=== PATIENT | female | born 1990 | race Caucasian/White ===

== ENCOUNTER 2016-07-12 21:11 | Emergency (ER) | payer BC, OTHER ==
[~2016-07-12] VITALS: Ht 160 cm; Wt 86.2 kg
[~2016-07-12 21:11] MED LIST: KRV28 PO; TOPI100T34 PO
[2016-07-12 21:20] VITALS: TEMP 36.5; Ht 160 cm; Wt 86.2 kg
[2016-07-12] MEDS ORDERED: IBUPROFEN 600 MG TAB PO STA (21:31)
--- NOTE | 2016-07-12 21:39 | EMERGENCY ROOM VISIT NOTE ---
History Report prepared by Soumya: Demario Ramirez Under the Supervision of: Dr. Ellis Arenas M.D. First contact with patient: 21:25 Chief Complaint: URINARY SYMPTOMS Stated Complaint: KIDNEY PAIN History of Present Illness The patient is a 26 year old female who presents to the Emergency Room with complaints of constant pain in her flanks bilaterally, which began 7 days prior to arrival. The patient is also experiencing increased frequency of urination, and sometimes feels the need to go without being able to void. She has a history of kidney infection, but has never had a stone. She denies any fever or chills, and has no abdominal pain. Source of History: patient Onset: 7 days [place] Position: back (Bilateral flanks) Timing: constant Associated Symptoms: + urinary symptoms, No abdominal pain, No chills, No fevers Review of Systems All systems have been listed, reviewed, and are negative other than those previously mentioned. Please see Additional Medical History Sheet. Past Medical & Surgical Medical Problems: (1) Pyelonephritis Nos Family History Cancer Gallbladder disease Heart disease Hypertension Kidney disease Kidney stones Social History Smoking Status: Never Smoker Alcohol Use: occasionally Housing Status: lives with family Occupation Status: employed Current/Historical Medications Scheduled Nitrofurantoin Monohyd Macro (Macrobid), 100 MG PO BID Topiramate (Topamax), 200 MG PO BID Verapamil HCl (Verapamil HCl ER), 120 MG PO BID Miscellaneous Medications Medroxyprogesterone Acetate (C (Medroxyprogesterone Aceta), 150 MG IM Allergies Coded Allergies: Aspirin (Verified Allergy, Mild, GI SYMPTOMS, 08/14/15) Oxycodone (Verified Allergy, Mild, GI SYMPTOMS, 08/14/15) pt reports nausea with use of oxycodone and doesnt want to ever take it again Physical Exam Vital Signs Date Time Temp Pulse Resp B/P Pulse Ox O2 Delivery O2 Flow Rate FiO2 07/12/16 21:20 36.5 133 16 134/70 100 Room Air Physical Exam GENERAL: Patient awake, alert, oriented x 3. Patient follows commands. Patient does not appear toxic. Patient is adequately hydrated and well- nourished. SKIN: No erythema, pallor, cyanosis or rash HEENT: Normal head, pupils equal, reactive to light and accommodation. Ears normal. LUNGS: Clear to auscultation. No wheezes, no rales, no rhonchi. HEART: No murmurs. No gallops. No rubs BACK: Vague bilateral CVA tenderness. ABDOMEN: Obese, nontender abdomen. No masses, no rebound, no hepatomegaly or splenomegaly. EXTREMITIES: No signs of trauma or infection. NEUROLOGIC: Cranial nerves II-XII within normal limits. No gross motor sensory function deficits. Medical Decision & Procedures Laboratory Results 07/12/16 21:40 07/12/16 21:40 Test 07/12/16 21:40 Red Blood Count 5.05 M/uL (4.2-5.4) Mean Corpuscular Volume 85.7 fL (80-100) Mean Corpuscular Hemoglobin 30.5 pg (25-34) Mean Corpuscular Hemoglobin Concent 35.6 g/dl (32-36) RDW Standard Deviation 39.5 fL (36.4-46.3) RDW Coefficient of Variation 12.6 % (11.5-14.5) Mean Platelet Volume 9.2 fL (7.4-10.4) Urine Color YELLOW Urine Appearance CLEAR (CLEAR) Urine pH 5.0 (4.5-7.5) Urine Specific Donora 1.023 (1.000-1.030) Urine Protein NEG (NEG) Urine Glucose (UA) NEG (NEG) Urine Ketones NEG (NEG) Urine Occult Blood 3+ (NEG) Urine Nitrite NEG (NEG) Urine Bilirubin NEG (NEG) Urine Urobilinogen NEG (NEG) Urine Leukocyte Esterase TRACE (NEG) Urine WBC (Auto) 10-30 /hpf (0-5) Urine RBC (Auto) 10-30 /hpf (0-4) Urine Hyaline Casts (Auto) 0 /lpf (0-5) Urine Epithelial Cells (Auto) >30 /lpf (0-5) Urine Bacteria (Auto) 3+ (NEG) Urine Pathogenic Casts /lpf (0) Urine Test NEG (NEG) Anion Gap 12.0 mmol/L (3-11) Est Creatinine Clear Calc Drug Dose 102.0 ml/min Estimated GFR () 106.6 Estimated GFR (Non- 91.9 BUN/Creatinine Ratio 16.6 (10-20) Calcium Level 8.8 mg/dl (8.5-10.1) Laboratory results as stated above per my review. Medications Administered Medications (Trade) Dose Ordered Sig/Liza Route Start Time Stop Time Status Last Admin Dose Admin Ibuprofen (Motrin Tab) 600 mg NOW STAT PO 07/12/16 21:31 07/12/16 21:32 DC 07/12/16 21:49 600 MG ED Course 2125: Past medical records reviewed. The patient was evaluated in room C10. A complete history and physical examination was performed. 2131: Ordered Ibuprofen 600 mg PO. 2229: Ordered Nitrofurantoin 100 mg PO. 2234: Upon reevaluation, the patient appeared to have improvement of her symptoms. I discussed today's findings with her. She verbalized agreement of the treatment plan. The patient was discharged home. Medical Decision Differential Diagnosis include: Urinary tract infection, pyelonephritis, kidney stone, musculoskeletal pain. Multiple labs and urinalysis were obtained. Please see above. The patient has a urinary tract infection. She will be started on Macrobid. She is to have her urinalysis repeated in 10-14 days to make sure that the infection has completely resolved. Impression Primary Impression: Urinary tract infection Scribe Attestation The scribe's documentation has been prepared under my direction and personally reviewed by me in its entirety. I confirm that the note above accurately reflects all work, treatment, procedures, and medical decision making performed by me. Departure Information Dispostion Home / Self-Care Prescriptions Nitrofurantoin Monohyd Macro (MACROBID) 100 Mg Cap 100 MG PO BID, #19 CAP Prov: Ellis Arenas M.D. 07/12/16 Referrals Reta Baron D.O. (PCP) Patient Instructions ED UTI Cystitis Female, My [facility] Additional Instructions Take 1 Macrobid twice a day for 10 days. Drink extra fluids. Take 2-3 Advil every 6 hours as needed for pain. Follow-up with your family physician within the next 2 weeks.
[2016-07-12 21:48] LABS: HEMATOCRIT 43.3 % (37-47); MEAN CELL VOLUME 85.7 fL (80-100); MEAN CORPUSCULAR HEMOGLOBIN 30.5 pg (25-34); MEAN CORPUSCULAR HGB CONC 35.6 g/dl (32-36); MEAN PLATELET VOLUME 9.2 fL (7.4-10.4); PLATELET COUNT 295 K/uL (130-400); RED BLOOD COUNT 5.05 M/uL (4.2-5.4); WHITE BLOOD COUNT 8.43 K/uL (4.8-10.8)
[2016-07-12] MEDS ORDERED: MEDR1INJ5 IM (21:50)
[2016-07-12] MEDS ORDERED: VERA120T65 PO (21:50)
[2016-07-12] MEDS ORDERED: TOPI200T20 PO (21:50)
[2016-07-12 22:03] LABS: URINE APPEARANCE CLEAR (CLEAR); URINE BILIRUBIN NEG (NEG); URINE COLOR YELLOW; URINE EPITHELIAL CELL AUTO >30 /lpf (0-5); URINE NITRITE NEG (NEG); URINE SPECIFIC GRAVITY 1.023 (1.000-1.030); UROBILINOGEN NEG (NEG); ZZUR CULT IF INDIC CLEAN CATCH YES
[2016-07-12 22:05] LABS: BUN/CREATININE RATIO 16.6 (10-20); CALCIUM 8.8 mg/dl (8.5-10.1); CREATININE 0.87 mg/dl (0.60-1.20); POTASSIUM 3.5 mmol/L (3.5-5.1)
[2016-07-12 22:09] LABS: MANUAL MICROSCOPIC REQUIRED? NO; REVIEW REQ? YES
[2016-07-12] MEDS ORDERED: NITROFURANTOIN MONOHYDRATE 100 MG CAP PO ONE (22:30)
[2016-07-12] MEDS ORDERED: NITR1CAP16 PO (22:30)
[2016-07-12 22:39] VITALS: BP 128/84; PULSE 98; O2SAT 100
[2016-08-24] MEDS ORDERED: DPPRI400 IM (08:42)
[2016-09-12] MEDS ORDERED: DOXE10CA PO (10:00)
[2016-10-13] MEDS ORDERED: NALT1TAB14 (13:07)
== END 2016-07-12 22:59 | disposition home or self-care (01) ==
LOC: C.EDB 21:12 → C.EDC 22:59
DX: N39.0 Urinary tract infection, site not specified (principal)

== ENCOUNTER → 2017-06-19 | Outpatient (CLI) | payer OTHER ==
[~2017-06-19] MED LIST changes: +DOXE10CA PO; +DPPRI400 IM; -KRV28 PO; +NALT1TAB14; -TOPI100T34 PO; +TOPI200T20 PO; +VERA120T65 PO
== END | disposition home or self-care (01) ==
LOC: C.PAPS 09:10
PROVIDERS: ATTEND Physician Assistant
DX: Z12.4 Encounter for screening for malignant neoplasm of cervix (principal)

== ENCOUNTER → 2017-07-19 | Outpatient (CLI) | payer OTHER | END | disposition home or self-care (01) | LOC: C.LABSPEC 17:35 | PROVIDERS: ATTEND Physician Assistant | DX: Z30.430 Encounter for insertion of intrauterine contraceptive device (principal) ==

== ENCOUNTER 2022-01-27 08:21 | Inpatient (IN) ==
[2022-01-27] MEDS ORDERED: OXYTOCIN 30 UNITS/500 ML BAG IV PRN ×2 (11:27)
[2022-01-27] MEDS ORDERED: LIDOCAINE 1% LOCAL 20 ML VIAL INFIL PRN (11:27)
[2022-01-27] MEDS: LACTATED RINGER'S 1,000 ML IV PRN ×4 (11:30→22:30)
--- NOTE | 2022-01-27 11:43 | Labor Progress Brief Note ---
Date of Service January 27, 2022 Subjective Patient presented to L&D for contractions every 8 minutes, as a rule-out labor. Exam x2 by nursing while I was operating downstairs in the Main OR demonstrated no cervical change. However, patient is tearful with contractions which she feels are worsening. Additionally, she was found to have hypertension x2 measurements. Thus I discussed with the patient IOL for gHTN at 40w6d. She is already feeling so much pain with her current contractions that whether this is in fact early labor or she is truly being induced, she is agreeable with proceeding, and wishes to be given an epidural at the earliest opportunity. 31yo @ 40w6d with c/b A1GDM, COVID infection (current), Obesity BMI >40, and postdates. Assessment & Plan (1) COVID-19: Plan: Recovering from COVID, currently good O2 saturations and voice hoarse but breathing well. (2) Post term at 41 weeks gestation: Plan: IOL vs augmentation of early labor (3) Gestational hypertension: Plan: Would recommend IOL even if not in early labor, which she may be, though hasn't demonstrated change in the time she's been here yet. No need to wait further to clarify diagnosis as she is 40w6d and recommendation to proceed towards delivery is preferred by patient. She is hoping for epidural which will be provided before any augmentation given her current pain level. Physical Exam Constitutional: WD/WN, vitals as above + in distress Eyes: PERRL, conjunctivae normal, anicteric sclerae Neck: supple Respiratory: normal respiratory effort and able to speak in complete sentences; no respiratory distress Cardiovascular: Rate/Rhythm: regular rate and regular rhythm Extremities: + pedal edema Gastrointestinal (Abdomen): Gravid / AGA, nontender Musculoskeletal: no cyanosis or clubbing, extremities motor strength 5/5 Skin: no rashes, warm and dry Neurologic: patellar DTR's 2+ bilat, sensation intact Genitourinary: Speculum/Bimanual Exam: no vaginal lesions, no vaginal bleeding and uterus nontender OB Exam Abdomen: + vertex, + estimated weight (7) and + irregular contractions (Q8) Manual OB Exam: + cervical dilation 1 cm, + cervical effacement 80%, + station -2 and + amniotic fluid (No leaking evident) OB Exam Monitor Tracing: + external FHT monitor used, + external uterine monitor used and + category I Lymphatic: no cervical or axillary lymphadenopathy Results & Data ([facility]) Vital Signs (Past 12 Hours) Vital Signs Pulse Resp BP Pulse Ox O2 Del Method 01/27/22 08:51 22 Room Air 01/27/22 11:12 85 01/27/22 11:12 130/75 01/27/22 10:59 88 01/27/22 10:59 145/75 H 01/27/22 09:35 98 01/27/22 09:35 103 H 01/27/22 09:30 97 01/27/22 09:30 98 H 01/27/22 09:25 98 01/27/22 09:25 91 H 01/27/22 09:20 100 01/27/22 09:20 87 01/27/22 09:15 99 01/27/22 09:15 100 H 01/27/22 09:10 99 01/27/22 09:10 92 H 01/27/22 09:05 98 01/27/22 09:05 86 01/27/22 09:00 98 01/27/22 09:00 93 H 01/27/22 08:35 91 H 143/86 H Coding Level of Care Code None Diagnoses COVID-19 U07.1 Post term at 41 weeks gestation O48.0; Z3A.41 Gestational hypertension O13.9
[2022-01-27] MEDS ORDERED: fentaNYL citrate 100 MCG/2 ML VIAL ONE ×3 (11:51→21:05)
[2022-01-27] MEDS ORDERED: ePHEDrine sulfate 50 MG/ML AMP ONE (11:51)
[2022-01-27] MEDS ORDERED: SODIUM CHLORIDE 0.9% INJ 10 ML VIAL ONE (11:51)
[2022-01-27] MEDS ORDERED: LIDOCAINE 2%/EPINEPHRINE 1:200,000 20 ML SDV ONE ×2 (11:52→17:34)
[2022-01-27] MEDS ORDERED: BUPIVACAINE 0.25% 30 ML VIAL ONE (11:52)
[2022-01-27] MEDS ORDERED: fentaNYL 2MCG/ML ROPIVACAINE 1.25MG/ML 100 ML BAG EPI ONE (11:52)
[2022-01-27 12:00] LABS: Hematocrit (blood only) 35.1 % (34.1-44.9); Hemoglobin 11.4 g/dl (12.0-16.0); Mean Corpuscular Hemoglobin 27.1 pg (25.0-34.0); Mean Corpuscular Hgb Conc 32.5 g/dL (32.0-36.0); Mean Corpuscular Volume 83.6 fL (80.0-100.0); Mean Platelet Volume 9.3 fL (9.4-12.3); Platelet Count 289 K/uL (130-400); RDW Coefficient of Variation 15.9 % (11.5-14.5); RDW Standard Deviation 47.8 fL (36.4-46.3); White Blood Count 10.29 K/ul (4.8-10.8)
[2022-01-27] MEDS ORDERED: NALOXONE HCL 1 MG in SODIUM CHLORIDE 0.9% 1000ML 1,000 ML IV PRN (12:44)
[2022-01-27] MEDS ORDERED: diphenhydrAMINE 50 MG/ML VIAL IV PRN (12:44)
[2022-01-27] MEDS ORDERED: ONDANSETRON INJ 2 MG/ML 2 ML VIAL IV PRN (12:44)
[2022-01-27] MEDS ORDERED: ePHEDrine sulfate 50 MG/ML AMP IV PRN (12:44)
[2022-01-27] MEDS ORDERED: NALBUPHINE HCL INJ 10 MG/ML AMP IV PRN (12:44)
[2022-01-27] MEDS ORDERED: NALOXONE HCL 0.4 MG/1 ML VIAL/CARP IV PRN (12:44)
--- NOTE | 2022-01-27 12:44 | Anesthesiology Consultation ---
Date of Service January 27, 2022 Assessment & Plan ASA ASA3 Proposed Anesthesia Anesthesia Type: Labor Epidural Risk / Benefits Reviewed With: PT / POA / Parent / Guardian, Accepts Plan and Informed Consent Obtained History Height/Weight Height: 5 ft 3 in Weight: 115.212 kg Allergies Allergy/AdvReac Type Severity Reaction Status Date / Time aspirin Allergy Mild GI SYMPTOMS Verified 01/26/22 16:03 oxycodone Allergy Mild GI SYMPTOMS Verified 01/26/22 16:03 amoxicillin [From Augmentin] AdvReac Severe rebound Verified 01/26/22 16:03 headaches clavulanic acid AdvReac Severe rebound Verified 01/26/22 16:03 [From Augmentin] headaches adhesive tape AdvReac Rash Verified 01/27/22 12:26 Medications Home Medications Medication Instructions Recorded Confirmed Last Taken doxylamine 10 mg-pyridoxine (vit 1 tab PO BID #60 tabs 06/21/21 01/27/22 Unknown B6) 10 mg tablet,delayed release (Diclegis) prenat.vits,bert,lqg-[id number]-[id number] 1 tab PO DAILY #30 tabs 10/27/21 01/27/22 blood-glucose meter (GOODWINuch #1 ea 11/01/21 01/26/22 Unknown Ultra2 Meter kit) acetone (urine) test (Ketone Urine #50 ea 11/03/21 01/26/22 Unknown Test strips) ondansetron HCl 8 mg tablet See Rx Instructions .Route 12/14/21 01/27/22 Unknown .COMPLEX #60 tabs blood sugar diagnostic #120 ea 01/13/22 01/26/22 Unknown lancets 33 gauge (OneTouch Delica #150 ea 01/13/22 01/26/22 Unknown Lancets) omeprazole 20 mg capsule,delayed 20 mg PO TID 30 days #90 caps 01/13/22 01/27/22 01/26/22 release albuterol sulfate 90 mcg/actuation 3 inh inhalation Q6H #18 grams 01/21/22 01/27/22 Unknown aerosol inhaler prednisone 5 mg/5 mL oral solution See Rx Instructions PO DAILY PRN 01/27/22 01/27/22 Unknown Headache prednisone 5 mg/mL oral concentrate 5 mg PO DIRECTED PRN Headache 01/27/22 01/27/22 Unknown Active Medications Generic Name Dose Route Start Last Admin Trade Name Boo PRN Reason Stop Dose Admin Lactated Ringer's 1,000 mls @ 125 mls/hr 01/27/22 11:27 01/27/22 13:27 Lr IV 01/29/22 11:26 125 mls/hr .Q8H PRN Infusion L&D Protocol Protocol Oxytocin 30 units in 500 mls @ 7 mls/hr 01/27/22 11:27 01/27/22 15:15 Pitocin IV 01/29/22 11:26 0.42 units/hr .Q24H PRN 7 mls/hr Labor Induction/Augmentation Titration Protocol 0.42 UNITS/HR Ropivacaine 100 ml 01/27/22 12:44 01/27/22 12:59 Fentanyl 2mcg/Ml Ropivacaine 1.25mg/Ml 100 Ml Bag EPI 01/28/22 12:43 100 ml PRN PRN Administration Pain R/T Labor Protocol Past Medical History Medical History Cervical high risk human papillomavirus (HPV) DNA test positive Chronic migraine Papanicolaou smear of cervix with atypical squamous cells of undetermined significance (ASC-US) Exercise / Class Metabolic Activity II 4-5 Yardwork/Stairs/Walk up hill Past Family History Family History Family/Other Breast cancer Diabetes Ovarian cancer Mother Kidney stones Denies family history of Colorectal cancer Past Surgical History Surgical History History of esophagogastroduodenoscopy (EGD) Past Anesthesia History No Hx of Anesthesia Complications and No Family Hx of Anesthesia Complications History of PONV No Hx of PONV and No Hx of Motion Sickness Social History Smoking Status: Never smoker Hx Alcohol Use: No Hx Substance Use: No substance use type: does not use Review of Systems denies fever/cough/ colds/ chest pain/ SOB/ NEO denies NEO Physical Exam Vital Signs Last Vital Signs Pulse 94 H 01/27/22 15:19 Resp 20 01/27/22 11:45 BP 117/56 L 01/27/22 15:18 Pulse Ox 95 01/27/22 15:19 O2 Del Method 01/27/22 08:51 ENMT Mouth: no TMJ abnormality and no dentition abnormality Thyromental Distance: > or= 3.5 Finger Breadths Mallampati Class: II Neck neck extension not limited Respiratory normal respiratory effort; no respiratory distress Auscultation: lungs clear to auscultation bilaterally Cardiovascular Rate/Rhythm: regular rate and regular rhythm Neurologic moves all extremities Psychiatric Orientation: alert and oriented x 3 Testing Laboratory Results 01/27/22 11:46 01/27/22 11:46 Blood Type A Positive 01/27/22 11:46 Antibody Screen NEGATIVE 01/27/22 11:46 01/27/22 09:39 POC Glucose 74
[2022-01-27 12:45] LABS: Albumin Level 3.2 gm/dl (3.4-5.0); Alkaline Phosphatase 196 U/L (34-104); Anion Gap 10 (3-11); Aspartate Aminotransferase 15 U/L (13-39); BUN Creatinine Ratio 15.6 (10-20); Bilirubin,Total 0.3 mg/dl (0.2-1.0); Blood Urea Nitrogen 7 mg/dl (6-23); Calcium 8.8 mg/dl (8.5-10.1); Carbon Dioxide 21 mmol/L (21-32); Chloride 105 mmol/L (98-107); Creatinine Clr Calc Pharmacy 221.7 ml/min; Est GFR (African American) > 150.0 ml/min; Est GFR (Non-African American) 133.5 ml/min; Globulin 3.1 gm/dl (2.5-4.0); Glucose 74 mg/dl (70-99(Fasting)); Potassium 4.1 mmol/L (3.5-5.1); Sodium 136 mmol/L (136-145); Total Protein 6.3 gm/dl (6.0-8.3)
[2022-01-27] MEDS: fentaNYL 2MCG/ML ROPIVACAINE 1.25MG/ML 100 ML BAG EPI PRN ×3 (12:59→18:33)
[2022-01-27 13:17] LABS: Alanine Aminotransferase 12 U/L (7-52)
--- NOTE | 2022-01-27 16:30 | Labor Progress Brief Note ---
Date of Service January 27, 2022 Subjective Patient comfortable after placement of epidural. Assessment & Plan (1) Post term at 41 weeks gestation: Plan: Patient with most likely augmentation of early labor, 40w6d. Current COVID. gHTN on arrival but BPs normal since pain control was provided. Labs without evidence of preeclampsia. Fluid malodorous and possibly concerning for chorio, though no fever or tachy. Continue to move towards delivery and close monitoring. Admission and Anticipated Discharge Date Admission Date: January 27, 2022 Physical Exam Genitourinary: SROM had occurred, CHUX under patient soaked with meconium stained and very malodorous fluid. Cvx 2/90/-2 FHT 150 mod june +acc -de [place] q3m Pit @ 7 Results & Data ([facility]) Vital Signs (Past 12 Hours) Vital Signs Temp Pulse Resp BP Pulse Ox O2 Del Method 01/27/22 08:51 22 Room Air 01/27/22 16:24 96 01/27/22 16:24 85 01/27/22 16:19 95 01/27/22 16:19 85 01/27/22 16:19 119/56 L 01/27/22 16:14 96 01/27/22 16:14 85 01/27/22 16:09 96 01/27/22 16:09 79 01/27/22 16:04 95 01/27/22 16:04 85 01/27/22 16:04 83 01/27/22 16:04 122/65 01/27/22 15:59 97 01/27/22 15:59 86 01/27/22 15:54 96 01/27/22 15:54 93 H 01/27/22 15:49 97 01/27/22 15:49 95 H 01/27/22 15:48 82 01/27/22 15:48 120/58 L 01/27/22 15:45 98.6 F 01/27/22 15:44 98 01/27/22 15:44 108 H 01/27/22 15:39 98 01/27/22 15:39 100 H 01/27/22 15:34 95 01/27/22 15:34 83 01/27/22 15:34 84 01/27/22 15:34 111/57 L 01/27/22 15:29 96 01/27/22 15:29 91 H 01/27/22 15:24 95 01/27/22 15:24 87 01/27/22 15:19 95 01/27/22 15:19 94 H 01/27/22 15:18 84 01/27/22 15:18 117/56 L 01/27/22 15:14 94 01/27/22 15:14 82 01/27/22 15:09 95 01/27/22 15:09 84 01/27/22 15:04 95 01/27/22 15:04 84 01/27/22 15:04 80 01/27/22 15:04 122/58 L 01/27/22 14:59 96 01/27/22 14:59 90 01/27/22 14:54 96 01/27/22 14:54 85 01/27/22 14:49 96 01/27/22 14:49 102 H 01/27/22 14:48 100 H 01/27/22 14:48 109/60 01/27/22 14:44 96 01/27/22 14:44 94 H 01/27/22 14:39 95 01/27/22 14:39 98 H 01/27/22 14:34 94 01/27/22 14:34 88 01/27/22 14:33 81 01/27/22 14:33 121/59 L 01/27/22 14:29 95 01/27/22 14:29 88 01/27/22 14:24 96 01/27/22 14:24 88 01/27/22 14:19 94 01/27/22 14:19 84 01/27/22 14:19 120/59 L 01/27/22 14:14 95 01/27/22 14:14 88 01/27/22 14:09 95 01/27/22 14:09 87 01/27/22 14:04 95 01/27/22 14:04 88 01/27/22 14:02 88 01/27/22 14:02 111/65 01/27/22 13:59 96 01/27/22 13:59 95 H 01/27/22 13:56 73 01/27/22 13:56 122/62 01/27/22 13:54 94 01/27/22 13:54 83 01/27/22 13:50 81 01/27/22 13:50 127/60 01/27/22 13:49 95 01/27/22 13:49 86 01/27/22 13:46 84 01/27/22 13:46 134/59 L 01/27/22 13:44 95 01/27/22 13:44 82 01/27/22 13:41 82 01/27/22 13:41 114/56 L 01/27/22 13:39 96 01/27/22 13:39 92 H 01/27/22 13:36 88 01/27/22 13:36 119/56 L 01/27/22 13:34 95 01/27/22 13:34 91 H 01/27/22 13:29 96 01/27/22 13:29 95 H 01/27/22 13:30 92 H 01/27/22 13:30 110/53 L 01/27/22 13:24 95 01/27/22 13:24 91 H 01/27/22 13:25 85 01/27/22 13:25 111/57 L 01/27/22 13:19 96 01/27/22 13:19 97 H 01/27/22 13:19 101 H 01/27/22 13:19 106/60 01/27/22 13:17 96 H 01/27/22 13:17 95/52 L 01/27/22 13:14 96 01/27/22 13:14 87 01/27/22 13:15 85 01/27/22 13:15 104/56 L 01/27/22 13:12 87 01/27/22 13:12 100/55 L 01/27/22 13:10 82 01/27/22 13:10 99/56 L 01/27/22 13:09 96 01/27/22 13:09 88 01/27/22 13:09 85 01/27/22 13:09 105/55 L 01/27/22 13:05 98 H 01/27/22 13:05 118/56 L 01/27/22 13:04 97 01/27/22 13:04 91 H 01/27/22 13:03 85 01/27/22 13:03 116/57 L 01/27/22 12:59 96 01/27/22 12:59 93 H 01/27/22 12:54 98 01/27/22 12:54 88 09/22/22 12:53 89 L 01/27/22 12:53 104 H 01/27/22 12:49 96 01/27/22 12:49 80 01/27/22 12:44 96 01/27/22 12:44 88 01/27/22 12:39 97 01/27/22 12:39 82 01/27/22 12:36 88 01/27/22 12:36 131/69 01/27/22 12:34 98 01/27/22 12:34 93 H 01/27/22 12:25 96 01/27/22 12:25 85 01/27/22 11:45 20 01/27/22 11:45 20 01/27/22 12:20 99 01/27/22 12:20 85 01/27/22 12:15 96 01/27/22 12:15 89 01/27/22 12:10 95 01/27/22 12:10 84 01/27/22 12:05 97 01/27/22 12:05 87 01/27/22 11:57 99 01/27/22 11:57 89 01/27/22 11:52 97 01/27/22 11:52 87 01/27/22 11:47 99 01/27/22 11:47 94 H 01/27/22 11:42 97 01/27/22 11:42 86 01/27/22 11:12 85 01/27/22 11:12 130/75 01/27/22 10:59 88 01/27/22 10:59 145/75 H 01/27/22 09:35 98 01/27/22 09:35 103 H 01/27/22 09:30 97 01/27/22 09:30 98 H 01/27/22 09:25 98 01/27/22 09:25 91 H 01/27/22 09:20 100 01/27/22 09:20 87 01/27/22 09:15 99 01/27/22 09:15 100 H 01/27/22 09:10 99 01/27/22 09:10 92 H 01/27/22 09:05 98 01/27/22 09:05 86 01/27/22 09:00 98 01/27/22 09:00 93 H 01/27/22 08:35 91 H 143/86 H Coding Level of Care Code None Diagnoses Post term at 41 weeks gestation O48.0; Z3A.41
[2022-01-27] MEDS ORDERED: NURSING L&D Epidural Breakthrough Pain Update ONE (17:13)
[2022-01-27] MEDS ORDERED: ROPIVACAINE 0.5% 5 MG/ML 30 ML VIAL ONE (17:29)
--- NOTE | 2022-01-27 18:21 | Communication Note ---
Date of Service: January 27, 2022 pt c/o right hip pain. pt unable to move legs. Bolused 100 mcg fentanyl, 2 cc 2%lido w/ epi, and 2 cc of .5% ropivicaine. vss
--- NOTE | 2022-01-27 20:58 | Labor Progress Brief Note ---
Date of Service January 27, 2022 Subjective Patient with "hot spot" on R hip. Assessment & Plan (1) Post term at 41 weeks gestation: Plan: Patient with tachycardia and late decels but also with good variability and +scalp stim during exam. Hoping to achieve complete dilation soon and have opportunity to deliver vaginally, but patient and FOB made aware of Cat 2 FHT and concerns about ability of fetus to tolerate the remaining process. Agreeable to reposition and accepted peanut ball for the first time after this discussion. Would also recommend abx and a tylenol suppository, as patient co ntinues to have foul odor to amniotic fluid, and feels subjectively warm during exam, though no objective fever measured yet. I do suspect chorio is playing a role, and perhaps addressing that proactively will help tolerance of the remaining labor process. Admission and Anticipated Discharge Date Admission Date: January 27, 2022 Physical Exam Genitourinary: 9100/0 FHT Cat 2: 160 mod june +late decels +accels [place] Q2-3 Pit @ 9 Results & Data ([facility]) Vital Signs (Past 12 Hours) Vital Signs Temp Pulse Resp BP Pulse Ox O2 Del Method 01/27/22 19:15 Room Air 01/27/22 20:49 96 01/27/22 20:49 111 H 01/27/22 20:47 109 H 01/27/22 20:47 134/69 01/27/22 20:44 97 01/27/22 20:44 113 H 01/27/22 20:39 95 01/27/22 20:39 112 H 01/27/22 20:34 95 01/27/22 20:34 101 H 01/27/22 20:32 102 H 01/27/22 20:32 120/68 01/27/22 20:29 96 01/27/22 20:29 107 H 01/27/22 20:24 96 01/27/22 20:24 117 H 01/27/22 20:19 97 01/27/22 20:19 109 H 01/27/22 20:17 112 H 01/27/22 20:17 113/58 L 01/27/22 20:14 96 01/27/22 20:14 114 H 01/27/22 20:09 93 01/27/22 20:09 100 H 01/27/22 20:04 94 01/27/22 20:04 99 H 01/27/22 20:00 16 01/27/22 20:00 16 01/27/22 20:03 100 H 01/27/22 20:03 115/67 01/27/22 19:59 94 01/27/22 19:59 97 H 01/27/22 19:54 94 01/27/22 19:54 102 H 01/27/22 19:49 94 01/27/22 19:49 98 H 01/27/22 19:48 93 H 01/27/22 19:48 123/66 01/27/22 19:44 95 01/27/22 19:44 98 H 01/27/22 19:30 18 01/27/22 19:30 18 01/27/22 19:39 96 01/27/22 19:39 97 H 01/27/22 19:34 96 01/27/22 19:34 103 H 01/27/22 19:32 99 H 01/27/22 19:32 114/66 01/27/22 19:29 97 01/27/22 19:29 109 H 01/27/22 19:24 93 01/27/22 19:24 90 01/27/22 19:19 95 01/27/22 19:19 99 H 01/27/22 19:19 100 H 01/27/22 19:19 112/55 L 01/27/22 19:10 18 01/27/22 19:10 99.7 F H 18 01/27/22 19:14 96 01/27/22 19:14 113 H 01/27/22 17:45 98.6 F 01/27/22 19:09 96 01/27/22 19:09 98 H 01/27/22 19:04 94 01/27/22 19:04 100 H 01/27/22 19:02 103 H 01/27/22 19:02 124/65 01/27/22 18:59 94 01/27/22 18:59 98 H 01/27/22 18:54 94 01/27/22 18:54 92 H 01/27/22 18:49 96 01/27/22 18:49 108 H 01/27/22 18:48 107 H 01/27/22 18:48 109/57 L 01/27/22 18:44 95 01/27/22 18:44 111 H 01/27/22 18:39 95 01/27/22 18:39 98 H 01/27/22 18:34 97 01/27/22 18:34 93 H 01/27/22 18:33 93 H 01/27/22 18:33 120/58 L 01/27/22 18:29 95 01/27/22 18:29 106 H 01/27/22 18:24 95 01/27/22 18:24 95 H 01/27/22 18:19 96 01/27/22 18:19 95 H 01/27/22 18:17 97 H 01/27/22 18:17 119/65 01/27/22 18:14 97 01/27/22 18:14 107 H 01/27/22 18:09 96 01/27/22 18:09 105 H 01/27/22 18:04 95 01/27/22 18:04 102 H 01/27/22 18:04 117/63 01/27/22 17:59 96 01/27/22 17:59 105 H 01/27/22 17:54 97 01/27/22 17:54 116 H 01/27/22 17:49 96 01/27/22 17:49 117 H 01/27/22 17:49 111 H 01/27/22 17:49 116/51 L 01/27/22 17:44 96 01/27/22 17:44 101 H 01/27/22 17:42 94 H 01/27/22 17:42 117/56 L 01/27/22 17:40 99 H 01/27/22 17:40 117/57 L 01/27/22 17:39 98 01/27/22 17:39 107 H 01/27/22 17:34 93 01/27/22 17:34 88 01/27/22 17:32 99 H 01/27/22 17:32 114/54 L 01/27/22 17:29 94 01/27/22 17:29 88 01/27/22 17:24 94 01/27/22 17:24 95 H 01/27/22 17:19 97 01/27/22 17:19 108 H 01/27/22 17:18 85 01/27/22 17:18 112/63 01/27/22 17:14 95 01/27/22 17:14 94 H 01/27/22 16:15 22 01/27/22 16:15 22 01/27/22 17:09 96 01/27/22 17:09 99 H 01/27/22 17:04 97 01/27/22 17:04 89 01/27/22 17:03 90 01/27/22 17:03 127/60 01/27/22 16:59 97 01/27/22 16:59 93 H 01/27/22 16:54 97 01/27/22 16:54 98 H 01/27/22 16:49 98 01/27/22 16:49 99 H 01/27/22 16:48 86 01/27/22 16:48 118/60 01/27/22 16:44 96 01/27/22 16:44 90 01/27/22 16:39 98 01/27/22 16:39 93 H 01/27/22 16:34 96 01/27/22 16:34 102 H 01/27/22 16:33 95 H 01/27/22 16:33 108/55 L 01/27/22 16:29 95 01/27/22 16:29 100 H 01/27/22 16:24 96 01/27/22 16:24 85 01/27/22 16:19 95 01/27/22 16:19 85 01/27/22 16:19 119/56 L 01/27/22 16:14 96 01/27/22 16:14 85 01/27/22 16:09 96 01/27/22 16:09 79 01/27/22 16:04 95 01/27/22 16:04 85 01/27/22 16:04 83 01/27/22 16:04 122/65 01/27/22 15:59 97 01/27/22 15:59 86 01/27/22 15:54 96 01/27/22 15:54 93 H 01/27/22 15:49 97 01/27/22 15:49 95 H 01/27/22 15:48 82 01/27/22 15:48 120/58 L 01/27/22 15:45 98.6 F 01/27/22 15:44 98 01/27/22 15:44 108 H 01/27/22 15:39 98 01/27/22 15:39 100 H 01/27/22 15:34 95 01/27/22 15:34 83 01/27/22 15:34 84 01/27/22 15:34 111/57 L 01/27/22 15:29 96 01/27/22 15:29 91 H 01/27/22 15:24 95 01/27/22 15:24 87 01/27/22 15:19 95 01/27/22 15:19 94 H 01/27/22 15:18 84 01/27/22 15:18 117/56 L 01/27/22 15:14 94 01/27/22 15:14 82 01/27/22 15:09 95 01/27/22 15:09 84 01/27/22 15:04 95 01/27/22 15:04 84 01/27/22 15:04 80 01/27/22 15:04 122/58 L 01/27/22 14:59 96 01/27/22 14:59 90 01/27/22 14:54 96 01/27/22 14:54 85 01/27/22 14:49 96 01/27/22 14:49 102 H 01/27/22 14:48 100 H 01/27/22 14:48 109/60 01/27/22 14:44 96 01/27/22 14:44 94 H 01/27/22 14:39 95 01/27/22 14:39 98 H 01/27/22 14:34 94 01/27/22 14:34 88 01/27/22 14:33 81 01/27/22 14:33 121/59 L 01/27/22 14:29 95 01/27/22 14:29 88 01/27/22 14:24 96 01/27/22 14:24 88 01/27/22 14:19 94 01/27/22 14:19 84 01/27/22 14:19 120/59 L 01/27/22 14:14 95 01/27/22 14:14 88 01/27/22 14:09 95 01/27/22 14:09 87 01/27/22 14:04 95 01/27/22 14:04 88 01/27/22 14:02 88 01/27/22 14:02 111/65 01/27/22 13:59 96 01/27/22 13:59 95 H 01/27/22 13:56 73 01/27/22 13:56 122/62 01/27/22 13:54 94 01/27/22 13:54 83 01/27/22 13:50 81 01/27/22 13:50 127/60 01/27/22 13:49 95 01/27/22 13:49 86 01/27/22 13:46 84 01/27/22 13:46 134/59 L 01/27/22 13:44 95 01/27/22 13:44 82 01/27/22 13:41 82 01/27/22 13:41 114/56 L 01/27/22 13:39 96 01/27/22 13:39 92 H 01/27/22 13:36 88 01/27/22 13:36 119/56 L 01/27/22 13:34 95 01/27/22 13:34 91 H 01/27/22 13:29 96 01/27/22 13:29 95 H 01/27/22 13:30 92 H 01/27/22 13:30 110/53 L 01/27/22 13:24 95 01/27/22 13:24 91 H 01/27/22 13:25 85 01/27/22 13:25 111/57 L 01/27/22 13:19 96 01/27/22 13:19 97 H 01/27/22 13:19 101 H 01/27/22 13:19 106/60 01/27/22 13:17 96 H 01/27/22 13:17 95/52 L 01/27/22 13:14 96 01/27/22 13:14 87 01/27/22 13:15 85 01/27/22 13:15 104/56 L 01/27/22 13:12 87 01/27/22 13:12 100/55 L 01/27/22 13:10 82 01/27/22 13:10 99/56 L 01/27/22 13:09 96 01/27/22 13:09 88 01/27/22 13:09 85 01/27/22 13:09 105/55 L 01/27/22 13:05 98 H 01/27/22 13:05 118/56 L 01/27/22 13:04 97 01/27/22 13:04 91 H 01/27/22 13:03 85 01/27/22 13:03 116/57 L 01/27/22 12:59 96 01/27/22 12:59 93 H 01/27/22 12:54 98 01/27/22 12:54 88 01/27/22 12:53 89 L 01/27/22 12:53 104 H 01/27/22 12:49 96 01/27/22 12:49 80 01/27/22 12:44 96 01/27/22 12:44 88 01/27/22 12:39 97 01/27/22 12:39 82 01/27/22 12:36 88 01/27/22 12:36 131/69 01/27/22 12:34 98 01/27/22 12:34 93 H 01/27/22 12:25 96 01/27/22 12:25 85 01/27/22 11:45 20 01/27/22 11:45 20 01/27/22 12:20 99 01/27/22 12:20 85 01/27/22 12:15 96 01/27/22 12:15 89 01/27/22 12:10 95 01/27/22 12:10 84 01/27/22 12:05 97 01/27/22 12:05 87 01/27/22 11:57 99 01/27/22 11:57 89 01/27/22 11:52 97 01/27/22 11:52 87 01/27/22 11:47 99 01/27/22 11:47 94 H 01/27/22 11:42 97 01/27/22 11:42 86 01/27/22 11:12 85 01/27/22 11:12 130/75 01/27/22 10:59 88 01/27/22 10:59 145/75 H 01/27/22 09:35 98 01/27/22 09:35 103 H 01/27/22 09:30 97 01/27/22 09:30 98 H 01/27/22 09:25 98 01/27/22 09:25 91 H 01/27/22 09:20 100 01/27/22 09:20 87 01/27/22 09:15 99 01/27/22 09:15 100 H 09/22/22 09:10 99 01/27/22 09:10 92 H 01/27/22 09:05 98 01/27/22 09:05 86 01/27/22 09:00 98 01/27/22 09:00 93 H Coding Level of Care Code None Diagnoses Post term at 41 weeks gestation O48.0; Z3A.41
[2022-01-27] MEDS ORDERED: AMPICILLIN/SULBACTAM SOD 3,000 MG in 0.9 % SODIUM CHLORIDE 100 ML IV STA (20:59)
[2022-01-27] MEDS ORDERED: ACETAMINOPHEN 650 MG SUPP PR STA (20:59)
--- NOTE | 2022-01-27 21:20 | Communication Note ---
Date of Service: January 27, 2022 pt with ocntinued hot spot on right hip. Bolus 2 cc 2% lido w/epi, 2 c .5% ropivicaine and 100 mcg fentanyl
--- NOTE | 2022-01-27 23:39 | Delivery Summary ---
Vaginal Delivery Summary Date of Service January 27, 2022 Vaginal Delivery Summary VAVD and 2nd Degree LAC DIAGNOSES: 1. Leblanc intrauterine at 40w6d gestation. 2. Spontaneous onset of labor. 3. Group B Streptococcus Neg 4. Gestational Hypertension without severe features. 5 COVID infection PROCEDURE: Vacuum-assisted vaginal delivery and repair of second degree laceration. SURGEON: Ale Mera MD. TEST DESIGNER: None. ESTIMATED BLOOD LOSS: 300 mL. COMPLICATIONS: None. PLACENTA: Spontaneous and intact with a 3-vessel cord. DISPOSITION: Stable to labor and delivery. DESCRIPTION: The patient reached complete dilation with FHT Cat 2, and was readied for second stage of labor with lithotomy positioning and coaching. Her first few pushing efforts were successful in achieving movement of the fetus, however due to active COVID infection, the patient's attempts to hold her breath during pushes triggered severe fits of coughing. Most of the downward movement of the baby was achieved via involuntary deep coughs rather than voluntary push ing. With each contraction, and each pushing effort, the coughing fits were severe enough to cause the patient to gasp for air and have difficulty speaking. Due to this, along with Cat 2 FHT, I advised the patient that I thought shortening her second stage via operative vaginal delivery might be farmer. She and the FOB were verbally consented for vacuum placement with discussion of risks and benefits. The bladder was emptied of about 50cc clear yellow urine via straight cath. The vacuum was applied to the scalp, and used to apply gentle traction in concert with maternal efforts / coughs through the next two contractions. There were no pop-offs. The 's head delivered in CRISTOBAL position. There was no nuchal cord. The shoulders and body delivered very rapidly after the head, without any difficulty, and the infant was held by the floor and wall applier liquid while the vacuum was quickly removed. It was vigorous and moving all extremities. After the was placed on the maternal abdomen, where bulb suction and tactile stim were provided by nurses, the cord was doubly clamped by the MD and then cut. The placenta delivered spontaneously and was noted to be intact and with a 3VC as well as heavy meconium staining. The cervix, vagina and perineum were examined and were found to have a second-degree laceration, which was repaired with vicryl suture in the usual running locked manner with a crown stitch to rebuild the perineal body. The fundus was firm and lochia minimal immediately after delivery. [facility] Vaginal Delivery Charge Vaginal Delivery Codes: 20245 global code for the antepartum, delivery, and post- Delivery Type Details: VAVD and 2nd Degree LAC
[2022-01-28] MEDS ORDERED: ACETAMINOPHEN 325 MG TAB PO PRN (00:01)
[2022-01-28] MEDS ORDERED: HYDROCORTISONE ACETATE 25 MG SUPP PR PRN (00:01)
[2022-01-28] MEDS ORDERED: BENZOCAINE 20% AER SPR 82.5 GM CAN EXT PRN (00:01)
[2022-01-28] MEDS ORDERED: DIPHTHERIA/TETANUS/PERTUSSIS 0.5 ML SYR/VIAL IM ONE (00:01)
--- NOTE | 2022-01-28 00:16 | Anesthesiology Progress Note ---
Date of Service January 28, 2022 Anesthesia Post Procedure Vital Signs Vital Signs: Temp Pulse Resp BP Pulse Ox O2 Del Method 01/27/22 19:15 Room Air 01/27/22 08:51 22 Room Air 01/28/22 00:09 117 H 135/72 01/27/22 23:54 118 H 01/27/22 23:54 140/76 01/27/22 23:00 20 01/27/22 23:00 20 01/27/22 23:39 117 H 01/27/22 23:39 119/57 L 01/27/22 23:24 97 01/27/22 23:23 117 H 01/27/22 23:24 119 H 01/27/22 23:23 119/59 L 01/27/22 23:19 97 01/27/22 23:19 123 H 01/27/22 23:14 97 01/27/22 23:14 131 H 01/27/22 23:09 97 01/27/22 23:09 122 H 01/27/22 23:04 94 01/27/22 23:04 155 H 01/27/22 22:59 96 01/27/22 22:59 119 H 01/27/22 22:55 125 H 01/27/22 22:55 111/59 L 01/27/22 22:54 97 01/27/22 22:54 130 H 01/27/22 22:49 93 01/27/22 22:49 107 H 01/27/22 22:30 16 01/27/22 22:30 16 01/27/22 22:44 94 01/27/22 22:44 108 H 01/27/22 22:32 37.4 C 01/27/22 22:40 108 H 01/27/22 22:40 122/60 01/27/22 22:39 96 01/27/22 22:39 113 H 01/27/22 22:34 96 01/27/22 22:34 106 H 01/27/22 22:29 96 01/27/22 22:29 120 H 01/27/22 22:26 113 H 01/27/22 22:26 131/59 L 01/27/22 22:24 96 01/27/22 22:24 121 H 01/27/22 22:19 95 01/27/22 22:19 113 H 01/27/22 22:14 94 01/27/22 22:14 113 H 01/27/22 22:12 112 H 01/27/22 22:12 126/61 01/27/22 22:09 95 01/27/22 22:09 113 H 01/27/22 22:04 96 01/27/22 22:04 117 H 01/27/22 22:00 16 01/27/22 22:00 16 01/27/22 21:59 95 01/27/22 21:59 116 H 01/27/22 21:55 120 H 01/27/22 21:55 119/57 L 01/27/22 21:54 95 01/27/22 21:54 115 H 01/27/22 21:49 96 01/27/22 21:49 123 H 01/27/22 21:44 95 01/27/22 21:44 115 H 01/27/22 21:40 111 H 01/27/22 21:40 110/54 L 01/27/22 21:39 92 01/27/22 21:39 111 H 01/27/22 21:34 93 01/27/22 21:34 109 H 01/27/22 21:30 18 01/27/22 21:30 18 01/27/22 21:00 18 01/27/22 21:00 18 01/27/22 21:29 93 01/27/22 21:29 114 H 01/27/22 21:24 95 01/27/22 21:24 118 H 01/27/22 21:25 115 H 01/27/22 21:25 114/56 L 01/27/22 21:19 95 01/27/22 21:19 117 H 01/27/22 21:18 115 H 01/27/22 21:18 107/55 L 01/27/22 21:15 115 H 01/27/22 21:15 119/63 01/27/22 21:14 95 01/27/22 21:14 113 H 01/27/22 20:25 37.7 C H 01/27/22 21:13 113 H 01/27/22 21:13 106/55 L 01/27/22 21:09 97 01/27/22 21:09 116 H 01/27/22 20:30 18 01/27/22 20:30 18 01/27/22 21:04 95 01/27/22 21:04 116 H 01/27/22 21:03 115 H 01/27/22 21:03 105/52 L 01/27/22 20:59 95 01/27/22 20:59 111 H 01/27/22 20:54 96 01/27/22 20:54 112 H 01/27/22 20:49 96 01/27/22 20:49 111 H 01/27/22 20:47 109 H 01/27/22 20:47 134/69 01/27/22 20:44 97 01/27/22 20:44 113 H 01/27/22 20:39 95 01/27/22 20:39 112 H 01/27/22 20:34 95 01/27/22 20:34 101 H 01/27/22 20:32 102 H 01/27/22 20:32 120/68 01/27/22 20:29 96 01/27/22 20:29 107 H 01/27/22 20:24 96 01/27/22 20:24 117 H 01/27/22 20:19 97 01/27/22 20:19 109 H 01/27/22 20:17 112 H 01/27/22 20:17 113/58 L 01/27/22 20:14 96 01/27/22 20:14 114 H 01/27/22 20:09 93 01/27/22 20:09 100 H 01/27/22 20:04 94 01/27/22 20:04 99 H 01/27/22 20:00 16 01/27/22 20:00 16 01/27/22 20:03 100 H 01/27/22 20:03 115/67 01/27/22 19:59 94 01/27/22 19:59 97 H 01/27/22 19:54 94 01/27/22 19:54 102 H 01/27/22 19:49 94 01/27/22 19:49 98 H 01/27/22 19:48 93 H 01/27/22 19:48 123/66 01/27/22 19:44 95 01/27/22 19:44 98 H 01/27/22 19:30 18 01/27/22 19:30 18 01/27/22 19:39 96 01/27/22 19:39 97 H 01/27/22 19:34 96 01/27/22 19:34 103 H 01/27/22 19:32 99 H 01/27/22 19:32 114/66 01/27/22 19:29 97 01/27/22 19:29 109 H 01/27/22 19:24 93 01/27/22 19:24 90 01/27/22 19:19 95 01/27/22 19:19 99 H 01/27/22 19:19 100 H 01/27/22 19:19 112/55 L 01/27/22 19:10 18 01/27/22 19:10 37.6 C H 18 01/27/22 19:14 96 01/27/22 19:14 113 H 01/27/22 17:45 37.0 C 01/27/22 19:09 96 01/27/22 19:09 98 H 01/27/22 19:04 94 01/27/22 19:04 100 H 01/27/22 19:02 103 H 01/27/22 19:02 124/65 01/27/22 18:59 94 01/27/22 18:59 98 H 01/27/22 18:54 94 01/27/22 18:54 92 H 01/27/22 18:49 96 01/27/22 18:49 108 H 01/27/22 18:48 107 H 01/27/22 18:48 109/57 L 01/27/22 18:44 95 01/27/22 18:44 111 H 01/27/22 18:39 95 01/27/22 18:39 98 H 01/27/22 18:34 97 01/27/22 18:34 93 H 01/27/22 18:33 93 H 01/27/22 18:33 120/58 L 01/27/22 18:29 95 01/27/22 18:29 106 H 01/27/22 18:24 95 01/27/22 18:24 95 H 01/27/22 18:19 96 01/27/22 18:19 95 H 01/27/22 18:17 97 H 01/27/22 18:17 119/65 01/27/22 18:14 97 01/27/22 18:14 107 H 01/27/22 18:09 96 0922/22 18:09 105 H 01/27/22 18:04 95 01/27/22 18:04 102 H 01/27/22 18:04 117/63 01/27/22 17:59 96 01/27/22 17:59 105 H 01/27/22 17:54 97 01/27/22 17:54 116 H 01/27/22 17:49 96 01/27/22 17:49 117 H 01/27/22 17:49 111 H 01/27/22 17:49 116/51 L 01/27/22 17:44 96 01/27/22 17:44 101 H 01/27/22 17:42 94 H 01/27/22 17:42 117/56 L 01/27/22 17:40 99 H 01/27/22 17:40 117/57 L 01/27/22 17:39 98 01/27/22 17:39 107 H 01/27/22 17:34 93 01/27/22 17:34 88 01/27/22 17:32 99 H 01/27/22 17:32 114/54 L 01/27/22 17:29 94 01/27/22 17:29 88 01/27/22 17:24 94 01/27/22 17:24 95 H 01/27/22 17:19 97 01/27/22 17:19 108 H 01/27/22 17:18 85 01/27/22 17:18 112/63 01/27/22 17:14 95 01/27/22 17:14 94 H 01/27/22 16:15 22 01/27/22 16:15 22 01/27/22 17:09 96 01/27/22 17:09 99 H 01/27/22 17:04 97 01/27/22 17:04 89 01/27/22 17:03 90 01/27/22 17:03 127/60 01/27/22 16:59 97 01/27/22 16:59 93 H 01/27/22 16:54 97 01/27/22 16:54 98 H 01/27/22 16:49 98 01/27/22 16:49 99 H 01/27/22 16:48 86 01/27/22 16:48 118/60 01/27/22 16:44 96 01/27/22 16:44 90 01/27/22 16:39 98 01/27/22 16:39 93 H 01/27/22 16:34 96 01/27/22 16:34 102 H 01/27/22 16:33 95 H 01/27/22 16:33 108/55 L 01/27/22 16:29 95 01/27/22 16:29 100 H 01/27/22 16:24 96 01/27/22 16:24 85 01/27/22 16:19 95 01/27/22 16:19 85 01/27/22 16:19 119/56 L 01/27/22 16:14 96 01/27/22 16:14 85 01/27/22 16:09 96 01/27/22 16:09 79 01/27/22 16:04 95 01/27/22 16:04 85 01/27/22 16:04 83 01/27/22 16:04 122/65 01/27/22 15:59 97 01/27/22 15:59 86 01/27/22 15:54 96 01/27/22 15:54 93 H 01/27/22 15:49 97 01/27/22 15:49 95 H 01/27/22 15:48 82 01/27/22 15:48 120/58 L 01/27/22 15:45 37.0 C 01/27/22 15:44 98 01/27/22 15:44 108 H 01/27/22 15:39 98 01/27/22 15:39 100 H 01/27/22 15:34 95 01/27/22 15:34 83 01/27/22 15:34 84 01/27/22 15:34 111/57 L 01/27/22 15:29 96 01/27/22 15:29 91 H 01/27/22 15:24 95 01/27/22 15:24 87 01/27/22 15:19 95 01/27/22 15:19 94 H 01/27/22 15:18 84 01/27/22 15:18 117/56 L 01/27/22 15:14 94 01/27/22 15:14 82 01/27/22 15:09 95 01/27/22 15:09 84 01/27/22 15:04 95 01/27/22 15:04 84 01/27/22 15:04 80 01/27/22 15:04 122/58 L 01/27/22 14:59 96 01/27/22 14:59 90 01/27/22 14:54 96 01/27/22 14:54 85 01/27/22 14:49 96 01/27/22 14:49 102 H 01/27/22 14:48 100 H 01/27/22 14:48 109/60 01/27/22 14:44 96 01/27/22 14:44 94 H 01/27/22 14:39 95 01/27/22 14:39 98 H 01/27/22 14:34 94 01/27/22 14:34 88 01/27/22 14:33 81 01/27/22 14:33 121/59 L 01/27/22 14:29 95 01/27/22 14:29 88 01/27/22 14:24 96 01/27/22 14:24 88 01/27/22 14:19 94 01/27/22 14:19 84 01/27/22 14:19 120/59 L 01/27/22 14:14 95 01/27/22 14:14 88 01/27/22 14:09 95 01/27/22 14:09 87 01/27/22 14:04 95 01/27/22 14:04 88 01/27/22 14:02 88 01/27/22 14:02 111/65 01/27/22 13:59 96 01/27/22 13:59 95 H 01/27/22 13:56 73 01/27/22 13:56 122/62 01/27/22 13:54 94 01/27/22 13:54 83 01/27/22 13:50 81 01/27/22 13:50 127/60 01/27/22 13:49 95 01/27/22 13:49 86 01/27/22 13:46 84 01/27/22 13:46 134/59 L 01/27/22 13:44 95 01/27/22 13:44 82 01/27/22 13:41 82 01/27/22 13:41 114/56 L 01/27/22 13:39 96 01/27/22 13:39 92 H 01/27/22 13:36 88 09/22/22 13:36 119/56 L 01/27/22 13:34 95 01/27/22 13:34 91 H 01/27/22 13:29 96 01/27/22 13:29 95 H 01/27/22 13:30 92 H 01/27/22 13:30 110/53 L 01/27/22 13:24 95 01/27/22 13:24 91 H 01/27/22 13:25 85 01/27/22 13:25 111/57 L 01/27/22 13:19 96 01/27/22 13:19 97 H 01/27/22 13:19 101 H 01/27/22 13:19 106/60 01/27/22 13:17 96 H 01/27/22 13:17 95/52 L 01/27/22 13:14 96 01/27/22 13:14 87 01/27/22 13:15 85 01/27/22 13:15 104/56 L 01/27/22 13:12 87 01/27/22 13:12 100/55 L 01/27/22 13:10 82 01/27/22 13:10 99/56 L 01/27/22 13:09 96 01/27/22 13:09 88 01/27/22 13:09 85 01/27/22 13:09 105/55 L 01/27/22 13:05 98 H 01/27/22 13:05 118/56 L 01/27/22 13:04 97 01/27/22 13:04 91 H 01/27/22 13:03 85 01/27/22 13:03 116/57 L 01/27/22 12:59 96 01/27/22 12:59 93 H 01/27/22 12:54 98 01/27/22 12:54 88 01/27/22 12:53 89 L 01/27/22 12:53 104 H 01/27/22 12:49 96 01/27/22 12:49 80 01/27/22 12:44 96 01/27/22 12:44 88 01/27/22 12:39 97 01/27/22 12:39 82 01/27/22 12:36 88 01/27/22 12:36 131/69 01/27/22 12:34 98 01/27/22 12:34 93 H 01/27/22 12:25 96 01/27/22 12:25 85 01/27/22 11:45 20 01/27/22 11:45 20 01/27/22 12:20 99 01/27/22 12:20 85 01/27/22 12:15 96 01/27/22 12:15 89 01/27/22 12:10 95 01/27/22 12:10 84 01/27/22 12:05 97 01/27/22 12:05 87 01/27/22 11:57 99 01/27/22 11:57 89 01/27/22 11:52 97 01/27/22 11:52 87 01/27/22 11:47 99 01/27/22 11:47 94 H 01/27/22 11:42 97 01/27/22 11:42 86 01/27/22 11:12 85 01/27/22 11:12 130/75 01/27/22 10:59 88 01/27/22 10:59 145/75 H 01/27/22 09:35 98 01/27/22 09:35 103 H 01/27/22 09:30 97 01/27/22 09:30 98 H 01/27/22 09:25 98 01/27/22 09:25 91 H 01/27/22 09:20 100 01/27/22 09:20 87 01/27/22 09:15 99 01/27/22 09:15 100 H 01/27/22 09:10 99 01/27/22 09:10 92 H 01/27/22 09:05 98 01/27/22 09:05 86 01/27/22 09:00 98 01/27/22 09:00 93 H 01/27/22 08:35 91 H 143/86 H Pain Intensity Right Lower Groin: Pain Intensity: 0 Transfer of Care Handoff Completed per policy Notes Mental Status: alert / awake / arousable and participated in evaluation Patient Amnestic to Procedure: Yes Nausea / Vomiting: adequately controlled Pain: adequately controlled Airway Patency, RR, SpO2: stable & adequate BP & HR: stable & adequate Hydration State: stable & adequate Anesthetic Complications: no major complications apparent and Pt Satisfied with anesthetic care
[2022-01-28] MEDS: IBUPROFEN 600 MG TAB PO PRN ×3 (00:34→21:12)
[2022-01-28] MEDS: oxyCODONE/ACETAMINOPHEN 5mg/325mg TAB PO PRN ×4 (01:27→21:13)
[2022-01-28] MEDS ORDERED: AMPICILLIN/SULBACTAM SOD 1,500 MG in 0.9 % SODIUM CHLORIDE 100 ML IV SCH (03:00)
--- NOTE | 2022-01-28 04:56 | Obstetrical Progress Note ---
Date of Service January 28, 2022 Assessment & Plan (1) Labial tear: (2) Vacuum-assisted vaginal delivery: Plan - Overall, feeling well and eating small amounts of regular diet today - Hoarse voice, no cough, no shortness of breath or labored breathing - feeding well via bottle/formula - Urinating and passing gas appropriately - Ambulating to bathroom and back - Pain controlled w/ Ibuprofen & Percocet - Routine PP care progressing well - Anticipate discharge at 24-48 hours PP Admission and Anticipated Discharge Date Admission Date: January 27, 2022 Supervising Physician Co-Signing Physician Notes Resident Physician Supervision Note: I interviewed and examined the patient. Discussed with Dr. Mak and agree with findings and plan as documented in the note. Any exceptions or clarifications are listed here: Patient seen in COVID precautions / neg pressure room with FOB in room along with baby in bassinet. She was sleeping on my entry, and woke easily without any evidence of respiratory distress. Cough was heard from the room while I was in the anteroom but this appears to hvae come from FOB who was heard to cough during my visit with patient as well. Patient's voice remains hoarse but improving over last 2 days. Doing well from a recovery standpoint. Choosing to formula-feed for ease but still considering once she has more energy; encouraged strongly to try. Documented By: Ale Mera MD, FACOG Subjective Today 01/28: Patient is a 31 y/o female who is PPD #1 following VAVD at 40w6d. Patient is on COVID precautions. Notes ongoing hoarseness of voice. Significant coughing during labor. Patient does not complain of respiratory distress or coughing this morning. - Ambulation - to bathroom w/o difficulty - Voiding/[place] - voiding independently w/o burning or pressure - Gas/Stool - passing gas regularly, no bowel movement - Diet - light amount of regular diet, no nausea or emesis - Lochia - moderate amount, diminishing - Infant Feeding Type - formula feeding - Pain Level - 5/10, managed with Ibuprofen and Percocet Review of Systems - Denies fever, chills, sweats - Denies shortness of breath, difficulty breathing, chest pain, palpitations, chest pressure. - Denies breast pain. - Denies dysuria. - Denies headache or changes in vision. Physical Exam Physical Exam: General: Alert, oriented. No acute distress. Hoarse voice, no cough. Cardiac: RRR, normal S1/S2, no murmurs/rubs/gallops. Respiratory: Non-labored, CTAB, no wheezes/rales/rhonchi. Symmetric chest rise. Abdomen: Soft, nontender, extended by abdominal adiposity. Bowel sounds present. Uterus: Uterine fundus firm, palpable 2 cm below umbilicus. Mild uterine TTP. Lower Extremities: No lower extremity edema or swelling. No deep calf pain. Mary's negative bilaterally. Results & Data ([facility]) Vital Signs (Past 12 Hours) Vital Signs Temp Pulse Resp BP Pulse Ox O2 Del Method 01/28/22 00:55 18 01/28/22 00:25 18 01/28/22 00:10 20 01/27/22 23:55 18 01/27/22 23:40 18 01/28/22 01:25 37.2 C 16 01/27/22 23:25 20 01/27/22 19:15 Room Air 01/28/22 01:24 109 H 134/65 01/28/22 01:09 104 H 137/65 01/28/22 00:54 111 H 135/70 01/28/22 00:39 106 H 146/83 H 01/28/22 00:24 123 H 136/81 01/28/22 00:09 117 H 135/72 01/27/22 23:54 118 H 01/27/22 23:54 140/76 01/27/22 23:00 20 01/27/22 23:00 20 01/27/22 23:39 117 H 01/27/22 23:39 119/57 L 01/27/22 23:24 97 01/27/22 23:23 117 H 01/27/22 23:24 119 H 01/27/22 23:23 119/59 L 01/27/22 23:19 97 01/27/22 23:19 123 H 01/27/22 23:14 97 01/27/22 23:14 131 H 01/27/22 23:09 97 01/27/22 23:09 122 H 01/27/22 23:04 94 01/27/22 23:04 155 H 01/27/22 22:59 96 01/27/22 22:59 119 H 01/27/22 22:55 125 H 01/27/22 22:55 111/59 L 01/27/22 22:54 97 01/27/22 22:54 130 H 01/27/22 22:49 93 01/27/22 22:49 107 H 01/27/22 22:30 16 01/27/22 22:30 16 01/27/22 22:44 94 01/27/22 22:44 108 H 01/27/22 22:32 37.4 C 01/27/22 22:40 108 H 01/27/22 22:40 122/60 01/27/22 22:39 96 01/27/22 22:39 113 H 01/27/22 22:34 96 01/27/22 22:34 106 H 01/27/22 22:29 96 01/27/22 22:29 120 H 01/27/22 22:26 113 H 01/27/22 22:26 131/59 L 01/27/22 22:24 96 01/27/22 22:24 121 H 01/27/22 22:19 95 01/27/22 22:19 113 H 01/27/22 22:14 94 01/27/22 22:14 113 H 01/27/22 22:12 112 H 01/27/22 22:12 126/61 01/27/22 22:09 95 01/27/22 22:09 113 H 01/27/22 22:04 96 01/27/22 22:04 117 H 01/27/22 22:00 16 01/27/22 22:00 16 01/27/22 21:59 95 01/27/22 21:59 116 H 01/27/22 21:55 120 H 01/27/22 21:55 119/57 L 01/27/22 21:54 95 01/27/22 21:54 115 H 01/27/22 21:49 96 01/27/22 21:49 123 H 01/27/22 21:44 95 01/27/22 21:44 115 H 01/27/22 21:40 111 H 01/27/22 21:40 110/54 L 01/27/22 21:39 92 01/27/22 21:39 111 H 01/27/22 21:34 93 01/27/22 21:34 109 H 01/27/22 21:30 18 01/27/22 21:30 18 01/27/22 21:00 18 01/27/22 21:00 18 01/27/22 21:29 93 01/27/22 21:29 114 H 01/27/22 21:24 95 01/27/22 21:24 118 H 01/27/22 21:25 115 H 01/27/22 21:25 114/56 L 01/27/22 21:19 95 01/27/22 21:19 117 H 01/27/22 21:18 115 H 01/27/22 21:18 107/55 L 01/27/22 21:15 115 H 01/27/22 21:15 119/63 01/27/22 21:14 95 01/27/22 21:14 113 H 01/27/22 20:25 37.7 C H 01/27/22 21:13 113 H 01/27/22 21:13 106/55 L 01/27/22 21:09 97 01/27/22 21:09 116 H 01/27/22 20:30 18 01/27/22 20:30 18 01/27/22 21:04 95 01/27/22 21:04 116 H 01/27/22 21:03 115 H 01/27/22 21:03 105/52 L 01/27/22 20:59 95 01/27/22 20:59 111 H 01/27/22 20:54 96 01/27/22 20:54 112 H 01/27/22 20:49 96 01/27/22 20:49 111 H 01/27/22 20:47 109 H 01/27/22 20:47 134/69 01/27/22 20:44 97 01/27/22 20:44 113 H 01/27/22 20:39 95 01/27/22 20:39 112 H 01/27/22 20:34 95 01/27/22 20:34 101 H 01/27/22 20:32 102 H 01/27/22 20:32 120/68 01/27/22 20:29 96 01/27/22 20:29 107 H 01/27/22 20:24 96 01/27/22 20:24 117 H 01/27/22 20:19 97 01/27/22 20:19 109 H 01/27/22 20:17 112 H 01/27/22 20:17 113/58 L 01/27/22 20:14 96 01/27/22 20:14 114 H 01/27/22 20:09 93 01/27/22 20:09 100 H 01/27/22 20:04 94 01/27/22 20:04 99 H 01/27/22 20:00 16 01/27/22 20:00 16 01/27/22 20:03 100 H 01/27/22 20:03 115/67 01/27/22 19:59 94 01/27/22 19:59 97 H 01/27/22 19:54 94 01/27/22 19:54 102 H 01/27/22 19:49 94 01/27/22 19:49 98 H 01/27/22 19:48 93 H 01/27/22 19:48 123/66 01/27/22 19:44 95 01/27/22 19:44 98 H 01/27/22 19:30 18 01/27/22 19:30 18 01/27/22 19:39 96 01/27/22 19:39 97 H 01/27/22 19:34 96 01/27/22 19:34 103 H 01/27/22 19:32 99 H 01/27/22 19:32 114/66 01/27/22 19:29 97 01/27/22 19:29 109 H 01/27/22 19:24 93 01/27/22 19:24 90 01/27/22 19:19 95 01/27/22 19:19 99 H 01/27/22 19:19 100 H 01/27/22 19:19 112/55 L 01/27/22 19:10 18 01/27/22 19:10 37.6 C H 18 01/27/22 19:14 96 01/27/22 19:14 113 H 01/27/22 17:45 37.0 C 01/27/22 19:09 96 01/27/22 19:09 98 H 01/27/22 19:04 94 01/27/22 19:04 100 H 01/27/22 19:02 103 H 01/27/22 19:02 124/65 01/27/22 18:59 94 01/27/22 18:59 98 H 01/27/22 18:54 94 01/27/22 18:54 92 H 01/27/22 18:49 96 01/27/22 18:49 108 H 01/27/22 18:48 107 H 01/27/22 18:48 109/57 L 01/27/22 18:44 95 01/27/22 18:44 111 H 01/27/22 18:39 95 01/27/22 18:39 98 H 01/27/22 18:34 97 01/27/22 18:34 93 H 01/27/22 18:33 93 H 01/27/22 18:33 120/58 L 01/27/22 18:29 95 01/27/22 18:29 106 H 01/27/22 18:24 95 01/27/22 18:24 95 H 01/27/22 18:19 96 01/27/22 18:19 95 H 01/27/22 18:17 97 H 01/27/22 18:17 119/65 01/27/22 18:14 97 01/27/22 18:14 107 H 01/27/22 18:09 96 01/27/22 18:09 105 H 01/27/22 18:04 95 01/27/22 18:04 102 H 01/27/22 18:04 117/63 01/27/22 17:59 96 01/27/22 17:59 105 H 01/27/22 17:54 97 01/27/22 17:54 116 H 01/27/22 17:49 96 01/27/22 17:49 117 H 01/27/22 17:49 111 H 01/27/22 17:49 116/51 L 01/27/22 17:44 96 01/27/22 17:44 101 H 01/27/22 17:42 94 H 01/27/22 17:42 117/56 L 01/27/22 17:40 99 H 01/27/22 17:40 117/57 L 01/27/22 17:39 98 01/27/22 17:39 107 H 01/27/22 17:34 93 01/27/22 17:34 88 01/27/22 17:32 99 H 01/27/22 17:32 114/54 L 01/27/22 17:29 94 01/27/22 17:29 88 01/27/22 17:24 94 01/27/22 17:24 95 H 01/27/22 17:19 97 01/27/22 17:19 108 H 01/27/22 17:18 85 01/27/22 17:18 112/63 01/27/22 17:14 95 01/27/22 17:14 94 H 01/27/22 17:09 96 01/27/22 17:09 99 H 01/27/22 17:04 97 01/27/22 17:04 89 01/27/22 17:03 90 01/27/22 17:03 127/60 01/27/22 16:59 97 01/27/22 16:59 93 H 01/27/22 16:54 97 01/27/22 16:54 98 H Resident Activity Tracking Resident Involvement: Resident Care Provided Care Provided: OB Delivery
[2022-01-28 07:14] LABS: Hematocrit (blood only) 30.7 % (34.1-44.9); Hemoglobin 9.9 g/dl (12.0-16.0); Mean Corpuscular Hemoglobin 26.7 pg (25.0-34.0); Mean Corpuscular Hgb Conc 32.2 g/dL (32.0-36.0); Mean Corpuscular Volume 82.7 fL (80.0-100.0); Mean Platelet Volume 9.3 fL (9.4-12.3); Platelet Count 287 K/uL (130-400); RDW Coefficient of Variation 15.7 % (11.5-14.5); Red Blood Count 3.71 M/uL (3.93-5.22); White Blood Count 16.49 K/ul (4.8-10.8)
[2022-01-28] MEDS: DOCUSATE SODIUM 100 MG CAP PO SCH ×2 (08:48→21:12)
[2022-01-28] MEDS: PRENATAL VITAMIN 1 TAB PO SCH (08:48)
[2022-01-29] MEDS: oxyCODONE/ACETAMINOPHEN 5mg/325mg TAB PO PRN (05:28)
[2022-01-29] MEDS: IBUPROFEN 600 MG TAB PO PRN ×2 (05:28→09:45)
[2022-01-29 06:43] LABS: Hematocrit (blood only) 33.8 % (34.1-44.9); Hemoglobin 10.8 g/dl (12.0-16.0)
--- NOTE | 2022-01-29 08:06 | Obstetrical Progress Note ---
Date of Service January 29, 2022 Assessment & Plan (1) Labial tear: (2) Vacuum-assisted vaginal delivery: Plan - Overall, feeling well and eating regular diet today - Improved hoarseness, no cough, no shortness of breath or labored breathing - feeding well via bottle/formula - Urinating and passing gas appropriately - Ambulating to bathroom and back - Pain controlled w/ Ibuprofen & Percocet - Routine PP care progressing well - Hgb 10.8 - Anticipate discharge today Admission and Anticipated Discharge Date Admission Date: January 27, 2022 Supervising Physician Co-Signing Physician Notes Resident Physician Supervision Note: I was present with Dr. Dr. Mak during the history and exam. I discussed the case with the resident and agree with the findings and plan as documented in the note. Any exceptions or clarifications are listed here: [None] Documented By: Maria Del Carmen Red MD, FACOG Subjective Today 01/29: Patient is a 31 y/o female who is PPD #1 following VAVD at 40w6d. Patient is on COVID precautions. Improved hoarseness of voice. Patient does not complain of respiratory distress or coughing this morning. - Ambulation - to bathroom w/o difficulty - Voiding/[place] - voiding independently w/o burning or pressure - Gas/Stool - passing gas regularly, no bowel movement - Diet - regular diet, no nausea or emesis - Lochia - light amount, diminishing - Infant Feeding Type - formula feeding - Pain Level - 3/10, managed with Ibuprofen and Percocet Review of Systems - Denies fever, chills, sweats - Denies shortness of breath, difficulty breathing, chest pain, palpitations, chest pressure. - Denies breast pain. - Denies dysuria. - Denies headache or changes in vision. Physical Exam Physical Exam: General: Alert, oriented. No acute distress. Hoarse voice, no cough. Cardiac: RRR, normal S1/S2, no murmurs/rubs/gallops. Respiratory: Non-labored, CTAB, no wheezes/rales/rhonchi. Symmetric chest rise. Abdomen: Soft, nontender, extended by abdominal adiposity. Bowel sounds present. Uterus: Uterine fundus firm, palpable 3 cm below umbilicus. Mild uterine TTP. Lower Extremities: No lower extremity edema or swelling. No deep calf pain. Mary's negative bilaterally. Results & Data ([facility]) Vital Signs (Past 12 Hours) Vital Signs Temp Pulse Resp BP Pulse Ox O2 Del Method 01/28/22 23:26 37 C 86 18 128/69 97 Room Air 01/28/22 21:15 36.9 C 112 H 20 138/98 97 Room Air Resident Activity Tracking Resident Involvement: Resident Care Provided Care Provided: OB Delivery
[2022-01-29] MEDS: PRENATAL VITAMIN 1 TAB PO SCH (09:45)
[2022-01-29] MEDS: DOCUSATE SODIUM 100 MG CAP PO SCH (09:45)
== END 2022-01-29 13:00 | disposition home or self-care (01) | DRG 805 ==
LOC: OPB 08:21 → 4S1 08:22 → 4E1 01-28 02:28